=== PATIENT | female | born 1970 | race Caucasian/White ===

== ENCOUNTER 2020-02-03 09:32 | Emergency (ER) | payer OTHER ==
[~2020-02-03] VITALS: Ht 165.1 cm; Wt 78.8 kg
[~2020-02-03 09:32] MED LIST: ASPI-515 PO; CALC-471 PO; CETI10CA PO; LANS30CA60 PO; MAGNESIUM PO; NASONEX; ZOLP-413 PO
--- NOTE | 2020-02-03 09:57 | NUR ---
PT PRESENTS TO ED WITH C/O GENERALIZED HIVES AND SENSATION OF THROAT CLOSING ONSET TODAY. PT IS ON DAY 7 OF AUGMENTIN COURSE FOR DOG BITE TO RIGHT THUMB. LAST DOSE WAS LAST NIGHT. WOUND IS HEALED, MARGINS APPROXIMATED WITH NO SURROUNDING ERYTHEMA. PT IS A&OX4, RSPS EVEN AND UNLABORED. PT ABLE TO SPEAK IN FULL SENTENCES WITHOUT DIFFICULTY. PT HAS NO S/SX AIRWAY COMPROMISE. PT PLACED ON ALL MONITORS, PT SEEN BY [facility]. PT TO BE MEDICATED AND MONITORED. CALL LIGHT IN REACH, BLANKET PROVIDED.
[2020-02-03 11:17] VITALS: BP 110/66
--- NOTE | 2020-02-03 11:23 | NUR ---
Pt was medicated per emar with prednisone, pt tolerated well. pt given crackers and water with MD heath. pt had no s/sx aspiration, no difficulty swallowing. at this time pt reports the swelling sensation in throat has subsided, mild improvement in hives. pt is a&o, resps even and unlabored, nsr on communication lecturer with no ectopy. spo2 >95% on room air. dc orders received, pt given dc instructions and script, educated regarding dc rx for prednisone. pt was instructed by MIRYAM Barone to discontinue augmentin course previously prescribed as this was likely her allergen, and 6 days is sufficient to treat dog bite. pt ambulatory to dc desk with steady gait, all questions answered.
== END 2020-02-03 11:24 | disposition home or self-care (01) ==
LOC: ED 09:47
DX: L50.0 Allergic urticaria (principal); T36.0X5A Adverse effect of penicillins, initial encounter; X58.XXXA Exposure to other specified factors, initial encounter; Y92.89 Other specified places as the place of occurrence of the external cause; Y93.89 Activity, other specified; Y99.8 Other external cause status
CPT/HCPCS: 99283; J7512